=== PATIENT | female | born 1995 | race Caucasian/White ===

== ENCOUNTER 2017-01-17 21:39 | Emergency (ER) | payer OTHER ==
[2017-01-17 21:51] VITALS: BP 139/92; PULSE 63; RESP 18; TEMP 98.6; O2SAT 99
--- NOTE | 2017-01-17 23:57 | ED PDOC ---
HPI: Psych/Substance Abuse Time Seen by Provider: 01/17/17 22:10 Chief Complaint (Nursing): Psychiatric Evaluation Chief Complaint (Provider): kayleigh boone Additional Complaint(s): 21 yo F in ED with SI sent a text to a friend saying she wanted to jump infront of a moving train. states she is depressed, and has had SI x1 year. Pt is visiting from [place] and has f/u therapy there. no HI, no hallucinations. Past Medical History Reviewed: Historical Data, Nursing Documentation, Vital Signs Vital Signs: Last Vital Signs Temp 98.6 F 01/17/17 21:46 Pulse 63 01/17/17 21:46 Resp 18 01/17/17 21:46 BP 139/92 H 01/17/17 21:46 Pulse Ox 99 01/17/17 21:46 - Medical History PMH: No Chronic Diseases - Family History Family History: States: No Known Family Hx - Allergies Allergies/Adverse Reactions: Allergies Allergy/AdvReac Type Severity Reaction Status Date / Time No Known Allergies Allergy Verified 01/17/17 21:46 Review of Systems ROS Statement: Except As Marked, All Systems Reviewed And Found Negative Psych: Positive for: Depression, Suicidal ideation Physical Exam - Reviewed Nursing Documentation Reviewed: Yes Vital Signs Reviewed: Yes - Physical Exam Appears: Positive for: Well, Non-toxic, No Acute Distress Head Exam: Positive for: ATRAUMATIC, NORMAL INSPECTION, NORMOCEPHALIC Skin: Positive for: Normal Color, Warm, DRY Eye Exam: Positive for: EOMI, Normal appearance, PERRL Neck: Positive for: Normal, Painless ROM Cardiovascular/Chest: Positive for: Regular Rate, Rhythm Respiratory: Positive for: CNT, Normal Breath Sounds Neurologic/Psych: Positive for: Alert, Oriented - ECG O2 Sat by Pulse Oximetry: 99 - Progress ED Course And Treament: Pt will get crisis evaluation Medical Decision Making Medical Decision Making: pt will be d/c with dx of depression under MD [place] stable for d/c Disposition - Clinical Impression Clinical Impression: Depression - Patient ED Disposition Is Patient to be Admitted: No Counseled Patient/Family Regarding: Need For Followup - Disposition Disposition: Routine/Home Disposition Time: 01:37 Condition: STABLE Instructions: Depression (ED) Forms: [employer] (Green[place]ic)
== END 2017-01-18 02:00 | disposition home or self-care (01) ==
LOC: H.ER 21:39
DX: F32.9 Major depressive disorder, single episode, unspecified (principal); Z00.8 Encounter for other general examination; Z86.59 Personal history of other mental and behavioral disorders